=== PATIENT | female | born 1990 | race Two or more races ===

== ENCOUNTER 2016-12-26 08:56 | Emergency (ER) | payer OTHER ==
[~2016-12-26] VITALS: Ht 160 cm; Wt 56.7 kg
[2016-12-26 09:10] VITALS: BP 110/69
[2016-12-26] MEDS ORDERED: NKM (09:11)
--- NOTE | 2016-12-26 09:46 | Emergency Room Report ---
History of Present Illness General Chief Complaint: General Complaint Source: Patient Present Illness HPI Patient presents with complaints of being emotionally upset Initially her main complaint was that she cannot eat or sleep over the past 2 days Patient became tearful during the discussion And asking further patient reports that she was having problems with someone of the opposite sex Denies any suicidal or homicidal thoughts Denies any chest pain or short of breath Patient feels extremely sad Denies any other medications Allergies: Coded Allergies: SULFAMETHOXAZOLE (Verified Allergy, Unknown, 12/26/16) TRIMETHOPRIM (Verified Allergy, Unknown, 12/26/16) Patient History Past Medical History: see triage record Pertinent Family History: none Last Menstrual Period: 12/01/2016 Now: No : 0 Para: 0 Reviewed Nursing Documentation: PMH: Agreed, PSxH: Agreed Review of Systems All Other Systems: negative except mentioned in HPI Physical Exam Vital Signs Date Time Temp Pulse Resp B/P Pulse Ox O2 Delivery O2 Flow Rate FiO2 12/26/16 09:05 98.8 95 16 107/68 100 Room Air Sp02 EP Interpretation: reviewed, normal General Appearance: well appearing Head: normocephalic, atraumatic Eyes: bilateral eye EOMI, bilateral eye PERRL ENT: hearing grossly normal, normal pharynx, TMs + canals normal, uvula midline Neck: full range of motion, supple, no meningismus, no bony tend Respiratory: lungs clear, normal breath sounds, no rhonchi, no respiratory distress, no retraction, no accessory muscle use Cardiovascular #1: normal peripheral pulses, regular rate, rhythm, no edema, no gallop, no JVD, no murmur Gastrointestinal: normal bowel sounds, non tender, soft, no mass, no organomegaly, non-distended, no guarding, no hernia, no pulsatile mass, no rebound Musculoskeletal: normal inspection Neurologic: oriented x3, responsive, business development representative III-XII nml as tested, motor strength/ tone normal, sensory intact Psychiatric: other Skin: normal color, no rash, warm/dry, palpation normal Lymphatic: normal inspection, no adenopathy Medical Decision Making Diagnostic Impression: Primary Impression: Insomnia ER Course After prolonged conversation patient opens up that she has recently broken up with her boyfriend She was told, that since she was no [employer] he could not Rachel her and the patient has been very upset she does live at home with her mom Continues to deny any suicidal or homicidal thoughts Given the situation I did have social work make contact with the patient as well they also confirm these findings Patient was written for 4 Xanax 0.25 until she can be seen by her primary physician And requires close outpatient followup Last Vital Signs Date Time Temp Pulse Resp B/P Pulse Ox O2 Delivery O2 Flow Rate FiO2 12/26/16 09:10 98.8 94 16 110/69 100 Room Air Status: improved Disposition: HOME, SELF-CARE Condition: Improved Scripts Alprazolam* (XANAX*) 0.25 Mg Tablet 0.25 MG ORAL QHS Y for For Anxiety, #4 TAB Prov: GUDELIA HAMILTON D.O. 12/26/16 Referrals: Marcelo NGUYEN,REFERRING (PCP) Additional Instructions: Patient is provided with the discharge instructions notified to follow up with primary doctor in the next 2-3 days otherwise return to the er with any worsening symptoms. Please note that this report is being documented using [employer] technology. This can lead to erroneous entry secondary to incorrect interpretation by the dictating instrument. GUDELIA HAMILTON D.O. Dec 26, 2016 09:46
[2016-12-26] MEDS ORDERED: ALPRAZOLAM0.25 MG ORAL (10:05)
[2016-12-26 10:10] VITALS: BP 108/65
== END 2016-12-26 10:10 | disposition home or self-care (01) ==
LOC: EMR 09:16
DX: G47.00 Insomnia, unspecified (principal); Z88.2 Allergy status to sulfonamides; Z88.1 Allergy status to other antibiotic agents
CPT/HCPCS: 99283